=== PATIENT | female | born 1985 | race Two or more races ===

== ENCOUNTER 2016-08-01 18:20 | Emergency (ER) | payer MEDICAID ==
[2016-08-01 21:06] LABS: ABSOLUTE NEUTROPHIL COUNT 4.6 K/mm3 (1.8-7.7); BASO % 0.2 % (0.2-1.0); EOS # 0.1 (0.0-0.5); EOS % 1.2 % (0.9-2.9); HEMATOCRIT 39.2 % (37.0-47.0); HEMOGLOBIN 13.3 gm/l (12.0-16.0); IMM NEUT% 0.4 % (0-1); LYMPH # 2.9 (1.0-4.8); LYMPH % 34.5 % (15-45); MEAN CELL VOLUME 90.3 fl (81.0-99.0); MEAN CORPUSCULAR HEMOGLOBIN 30.6 pg (27.0-31.0); MEAN CORPUSCULAR HGB CONC 33.9 g/dl (33.0-37.0); MEAN PLATELET VOLUME 11.4 fl (7.4-10.4); MONO # 0.8 (0.0-0.8); MONO % 9.8 % (4-12); NEUT % 53.9 % (43-75); PLATELET COUNT 242 K/mm3 (130-400)
[2016-08-01 21:08] LABS: ALB/GLOB RATIO 1.3 (>1.0); CALCIUM 8.8 mg/dL (8.6-10.3)
[2016-08-01 21:09] LABS: HCG,QUALITATIVE URINE NEGATIVE
[2016-08-01] MEDS ORDERED: SUCRALFATE 1 G/10 ML DOSE ONE (22:01)
[2016-08-01] MEDS ORDERED: LACTATED RINGERS 1,000 ML ONE (22:01)
[2016-08-01] MEDS ORDERED: MAALOX/LIDO2%VISC/SIMETHICONE 40 ML BOT ONE (22:01)
[2016-08-01] MEDS ORDERED: FAMOTIDINE 20 MG TABLET ONE (22:01)
[2016-08-01] MEDS ORDERED: PROCHLORPERAZINE 5 MG/ML 2 ML VIAL ONE (22:01)
--- NOTE | 2016-08-02 07:38 | US ---
ABDOMINAL-LIMITED COMPARISON: None HISTORY: Right upper quadrant pain since 07/31/2016. Nausea and vomiting. FINDINGS: Gall bladder: Contracted. No stones or sludge. No wall thickening. Common hepatic duct: 5.8 mm Common bile duct: 7.2 mm IMPRESSION: 1. The gallbladder is contracted. Low suspicion for acute cholecystitis. 2. Mildly dilated common bile duct without evidence of obstructing stone. Preliminary report by [facility] radiologist Luan Martin M.D. 08/01/2016 at 21:54
== END 2016-08-01 22:46 | disposition home or self-care (01) ==
LOC: ED 18:20
DX: R10.13 Epigastric pain (principal); R11.2 Nausea with vomiting, unspecified; R19.7 Diarrhea, unspecified
CPT/HCPCS: 83690; 81025; 85025; 80053; 76705; 99284 ×2; 96374; 96361; 93005; A9270 ×3; J0780; J7120